=== PATIENT | male | born 1990 | race Caucasian/White ===

== ENCOUNTER 2017-10-24 18:57 | Emergency (ER) | payer BC ==
[2017-10-24 19:21] VITALS: BP 139/80
--- NOTE | 2017-10-24 19:30 | UC ---
Laceration HPI - HPI Summary HPI Summary: Pt was getting a knife out of the drawer about an hour ago and sliced his right index finger pad. Unsure when last tetanus was. No hx of any bleeding disorders. Very mild pain. FROM. - History Of Current Complaint Chief Complaint: UCLaceration Stated Complaint: CUT FINGER Time Seen by Provider: 10/24/17 19:15 Hx Obtained From: Patient Laceration Location: Finger Mechanism Of Injury: Sharp Trauma Onset/Duration: Sudden Onset Severity: Mild Pain Intensity: 1 Pain Scale Used: 0-10 Numeric - Allergies/Home Medications Allergies/Adverse Reactions: Allergies Allergy/AdvReac Type Severity Reaction Status Date / Time No Known Allergies Allergy Verified 10/24/17 19:22 Home Medications: Home Medications NK [No Home Medications Reported] 10/24/17 [History Confirmed 10/24/17] PMH/Surg Hx/FS Hx/Imm Hx Previously Healthy: Yes - Surgical History Surgical History: None - Family History Known Family History: Positive: None - Social History Occupation: Employed Full-time Lives: With Family Alcohol Use: Weekly Substance Use Type: None Smoking Status (MU): Never Smoked Tobacco Review of Systems Constitutional: Negative Skin: Other - <3mm laceration to right index finger pad Respiratory: Negative Cardiovascular: Negative Gastrointestinal: Negative Neurological: Negative Psychological: Negative All Other Systems Reviewed And Are Negative: Yes Physical Exam Triage Information Reviewed: Yes Appearance: Well-Appearing, Well-Nourished Vital Signs: Initial Vital Signs Temp 97.9 F 10/24/17 19:13 Pulse 68 10/24/17 19:13 Resp 16 10/24/17 19:13 BP 139/80 10/24/17 19:13 Pulse Ox 100 10/24/17 19:13 Vital Signs Reviewed: Yes Respiratory: Positive: Chest non-tender, Lungs clear Cardiovascular: Positive: RRR, No Murmur, Pulses Normal, Brisk Capillary Refill - Right index Musculoskeletal: Positive: Strength Intact - Right index finger, ROM Intact - Right index finger, No Edema - Right index finger, Other: Neurological: Positive: Alert Psychological: Positive: Age Appropriate Behavior Skin: Positive: Other - Linear 3mm superficial laceration to right index finger pad. No tendon involvement, no subcutaneous involvement. Laceration Repair - Laceration Repair 1 Description: Linear Modified For Repair: No Closure Material: Skin Adhesive Laceration Course/Dx - Course/Dx Course Of Treatment: 3mm linear laceration to right index finger pad. No need for sutures, very superficial. Wound was cleansed with sterile saline. Dermabond applied. Sterile dressing applied. Advised pt to monitor for signs of infection and to return or go to ED if they occur. - Differential Dx - Laceration/Wound Differental Diagnoses: Fracture, Laceration Provider Diagnoses: 3mm linear laceration right index finger Discharge - Discharge Plan Condition: Stable Disposition: HOME Patient Education Materials: Laceration (ED) Referrals: No Primary Care Phys,NOPCP [Primary Care Provider] - Additional Instructions: If you develop a fever, SOB, chest pain, new or worsening symptoms - please call your PCP or go to the ED. Your blood pressure was mildly elevated at todays visit. Please see your primary provider within 4 weeks for recheck and re-evaluation. 1) Keep the bandage clean, dry, and intact for the next 24 hours. 2) Monitor the wound for any signs of infection such as; redness, streaking, warmth, colored drainage, swelling, or fever. If you develop any of these symptoms, please go to the ED.
[2017-10-24] MEDS: Tetan/Diph/Pertus SYR(Tdap)* 0.5 ML SYR(BOOSTRIX) use SYR IM ONE (19:38)
== END 2017-10-24 19:52 | disposition home or self-care (01) ==
LOC: UCEAST 18:57
DX: S61.210A Laceration without foreign body of right index finger without damage to nail, initial encounter (principal); W26.0XXA Contact with knife, initial encounter; Y93.89 Activity, other specified; Y92.9 Unspecified place or not applicable; Y99.9 Unspecified external cause status; Z23 Encounter for immunization
CPT/HCPCS: 12001; 90715; 99201; 99202; G0463